=== PATIENT | female | born 1935 | race Caucasian/White ===

== ENCOUNTER 2016-04-12 12:03 | Emergency (ER) | payer OTHER ==
[2016-04-12 12:49] VITALS: BP 133/75; PULSE 81; TEMP 97.1; BMI 27.4
--- NOTE | 2016-04-12 13:14 | PDOC ---
History of Present Illness - History of Present Illness Initial Comments: 04/12/16 13:18 The patient is a 81 year old female with no past medical hx who presents to the ED complaining of back pain since this morning. The patient states she felt as if her back was sore when she was sleeping last night. When she woke up and started her day, she began to feel shooting pains down the center of her back. She states the pain got progressively worse throughout the day and rates the pain as a 10/10. She notes it became difficult for her to walk secondary to the pain and so she called 911. She reports pain in her back is exacerbated with movement of arms. She states she was in her usual state of health last night before bed and reports she did not sleep in an unusual position. The patient denies any recent falls or trauma to her back. She reports she pulled a muscle in her back years ago and this pain is much worse. She denies a hx of orthopedic problems. She took Naproxen for pain this morning with no relief. She denies any recent travel. She denies chest pain, SOB She denies fever, chills Social: No toxic habits reported Surgical: None reported PCP: Dr. Snider <Sandra Nguyen - Last Filed: 04/12/16 15:15> - General History Source: Patient Exam Limitations: No Limitations <Huong Atkinson - Last Filed: 04/15/16 10:26> - General Chief Complaint: Pain Stated Complaint: PAIN Time Seen by Provider: 04/12/16 12:50 Past History <Sandra Nguyen - Last Filed: 04/12/16 15:15> - Past Medical History Thyroid Disease: No - Immunization History Immunization Up to Date: No - Psycho/Social/Smoking Cessation Hx Anxiety: No Suicidal Ideation: No Smoking History: Never smoked Have you smoked in the past 12 months: No Information on smoking cessation initiated: No Hx Alcohol Use: No Drug/Substance Use Hx: No Substance Use Type: None <Huong Atkinson - Last Filed: 04/15/16 10:26> - Past Medical History Allergies/Adverse Reactions: Allergies Allergy/AdvReac Type Severity Reaction Status Date / Time No Known Allergies Allergy Verified 04/12/16 12:49 Home Medications: Ambulatory Orders Ibuprofen [Motrin -] 600 mg PO TID PRN #21 tablet 04/12/16 Methocarbamol [Robaxin -] 500 mg PO TID PRN #21 tablet 04/12/16 Review of Systems - Review of Systems Able to Perform ROS?: Yes Comments:: 04/12/16 13:18 GENERAL/CONSTITUTIONAL: No: fever, chills, weakness, loss of appetite. HEAD, EYES, EARS, NOSE AND THROAT: No: change in vision, ear pain, discharge, sore throat, throat swelling. CARDIOVASCULAR: No: chest pain, lightheadedness, palpitations, syncope RESPIRATORY: No: cough, shortness of breath, wheezing, hemoptysis, stridor. GASTROINTESTINAL: No: nausea, vomiting, abdominal cramping, diarrhea, rectal bleeding, constipation. GENITOURINARY: No: dysuria, hematuria, frequency, urgency, flank pain. MUSCULOSKELETAL: +Back pain. SKIN: No: lesions, pallor, rash or easy bruising. NEUROLOGIC: No: headache, vertigo, paresthesias, weakness ENDOCRINE: No: unexplained weight gain or loss HEMATOLOGIC/LYMPHATIC: No: anemia, easy bleeding, swelling nodes <Sandra Nguyen - Last Filed: 04/12/16 15:15> *Physical Exam - Vital Signs Last Vital Signs Temp Pulse Resp BP Pulse Ox 97.1 F L 81 18 133/75 97 04/12/16 12:41 04/12/16 12:41 04/12/16 12:41 04/12/16 12:41 04/12/16 12:41 - Physical Exam Comments: 04/12/16 13:27 GENERAL: The patient is in no acute distress. HEAD: Normal with no signs of trauma. EYES: PERRLA, EOMI, sclera anicteric, conjunctiva clear. ENT: Ears normal, nares patent, oropharynx clear without exudates. Moist mucous membranes. NECK: Supple without lymphadenopathy, JVD, or masses. LUNGS: Breath sounds equal, clear to auscultation bilaterally. No wheezes, and no crackles. HEART:Regular rate and rhythm, normal S1 and S2 without murmur, rub or gallop. ABDOMEN: Soft, nontender, normoactive bowel sounds. No guarding, no rebound. BACK: +Upper back tenderness, no bruising. Pain in back with arm motions. EXTREMITIES: Normal ROM. No edema. No clubbing or cyanosis. No erythema, or tenderness. NEUROLOGICAL: Cranial nerves II through XII grossly intact. Normal speech. No focal neurological deficits. SKIN: Warm, Dry, normal turgor, no rashes or lesions noted <Sandra Nguyen - Last Filed: 04/12/16 15:15> - Vital Signs Last Vital Signs Temp Pulse Resp BP Pulse Ox 97.1 F L 81 18 133/75 97 04/12/16 12:41 04/12/16 12:41 04/12/16 12:41 04/12/16 12:41 04/12/16 12:41 <Huong Atkinson - Last Filed: 04/15/16 10:26> ED Treatment Course - LABORATORY CBC & Chemistry Diagram: 04/12/16 13:30 04/12/16 13:30 - RADIOLOGY Radiograph Interpretation: 04/12/16 15:10 Rib X-Ray Impression : Scoliosis. Intact left ribs. No acute pathology appreciated. If symptoms persist or there is decreased range of motion, then further imaging and orthopedic consultation may be of help. Reported By: Marcelino Christian MD 04/12/16 1444 04/12/16 15:15 Chest X-Ray Impression: Scoliosis. Sclerotic knob. Large heart. No acute pathology. No change of an adverse nature since 02/09/2015. Reported by: Marcelino Christian MD 04/12/16 1442 <Sandra Nguyen - Last Filed: 04/12/16 15:15> - LABORATORY CBC & Chemistry Diagram: 04/12/16 13:30 04/12/16 13:30 <Huong Atkinson - Last Filed: 04/15/16 10:26> Medical Decision Making - Medical Decision Making 04/12/16 13:13 A portion of this note was documented by scribe services under my direction. I have reviewed the details of the note, within reason, and agree with the documentation with the following case summary and management plan written by me. Nursing documentation reviewed and incorporated into medical decision making 04/12/16 15:31 This ia 81 yo F with no significant past medical history, who presents to the ER with a complaint of left upper back pain No fevers or chills No trauma No rash currently (previously, pt has zoster there, has mild post herpetic neuralgia) No cough No chest pain Pt has pain with movement of any kind (movement of the left arm, bending forward ) 04/12/16 15:32 DD includes musculoskeletal pain, rib fracture, pneumonia, PE (less likely) Will do labs, CXR (eval for fracture), D dimes D dimer negative X rays negative Pt given motrin and robaxin Pain greatly improved Pt discharged to home Follow up with PMD <Huong Atkinson - Last Filed: 04/15/16 10:26> *DC/Admit/Observation/Transfer - Attestations Scribe Attestion: 04/12/16 13:19 Documentation prepared by Sandra Nguyen, acting as caregivers non medical for Huong Atkinson MD/DO. <Sandra Nguyen - Last Filed: 04/12/16 15:15> - Discharge Dispostion Admit: No <Huong Atkinson - Last Filed: 04/15/16 10:26> Diagnosis at time of Disposition: Musculoskeletal pain - Discharge Dispostion Disposition: HOME Condition at time of disposition: Improved - Prescriptions Prescriptions: Ibuprofen [Motrin -] 600 mg PO TID PRN #21 tablet PRN Reason: Pain Methocarbamol [Robaxin -] 500 mg PO TID PRN #21 tablet PRN Reason: Pain - Referrals Referrals: Joann Nichols MD [Primary Care Provider] - - Patient Instructions Printed Discharge Instructions: DI for Musculoskeletal Pain Additional Instructions: Suyapa Thank you for coming in to the ER today I am sorry that you are having pain Please take pain medications as prescribed return to the ER for any other concerns or complaints
[2016-04-12] MEDS ORDERED: IBUPROFEN 800 MG/8 ML IJ IVPB ONE ×2 (13:15→13:24)
[2016-04-12] MEDS ORDERED: METHOCARBAMOL 500 MG TABLET PO ONE (13:16)
[2016-04-12] MEDS ORDERED: METHOCARBAMOL 500 MG TABLET ONE (13:24)
[2016-04-12 13:45] LABS: BASOPHIL 0.3 % (0-2.0); EOSINOPHIL 0.8 % (0-4.5); MCH 28.2 pg (25.7-33.7); MCHC 33.5 g/dl (32.0-36.0); MEAN CELL VOLUME 84.2 fl (80-96); MEAN PLT VOLUME 8.1 fl (7.5-11.1); NEUTROPHILS 77.5 % (42.8-82.8); PLATELET COUNT 280 K/MM3 (134-434); RDW 14.4 % (11.6-15.6); WHITE BLOOD COUNT 9.5 K/mm3 (4.0-10.0)
[2016-04-12 14:07] LABS: CALCIUM 9.5 mg/dL (8.5-10.1); CREATININE 0.9 mg/dL (0.55-1.02)
== END 2016-04-12 16:08 | disposition home or self-care (01) ==
LOC: JER 12:03
PROC: 3E0333Z Introduction of Anti-inflammatory into Peripheral Vein, Percutaneous Approach (ICD-10-PCS; principal; 2016-04-12)
DX: M54.6 Pain in thoracic spine (principal); M41.80 Other forms of scoliosis, site unspecified
CPT/HCPCS: 36415; 71020-TC; 71101-TC; 80048; 85025; 85379; 96374; 99281-25